=== PATIENT | female | born 1935 | race Caucasian/White ===

== ENCOUNTER 2020-06-29 20:06 | Emergency (ER) | payer MEDICARE ==
[2020-06-29] MEDS ORDERED: GABAPENTIN100 M2 PO (20:22)
[2020-06-29] MEDS ORDERED: LORAZEPAM0.5 MG PO (20:22)
[2020-06-29] MEDS ORDERED: RIVASTIGMINE1 EACH TD (20:23)
[2020-06-29] MEDS ORDERED: ZESTORETIC 20-1 EACH PO (20:23)
[2020-06-29] MEDS ORDERED: PRISTIQ50 MG PO (20:23)
[2020-06-29] MEDS ORDERED: LOVASTATIN40 MG PO (20:24)
[2020-06-29] MEDS ORDERED: PANTOPRAZOLE SO40 MG PO (20:24)
[2020-06-29] MEDS ORDERED: MIRTAZAPINE15 M2 PO (20:24)
[2020-06-29] MEDS ORDERED: Synthroid,Levo25 MCG PO (20:25)
[2020-06-29] MEDS ORDERED: ONDANSETRON HYDR4 MG PO (20:26)
[2020-06-29] MEDS ORDERED: VITAMIN D250 MC1 PO (20:26)
[2020-06-29] MEDS ORDERED: CLARITIN10 MG PO (20:27)
[2020-06-29 21:04] LABS: BASO % 0.3 % (0.0-1.0); EOS % 0.1 % (1.0-4.0); HEMATOCRIT 34.6 % (37.0-47.0); LYMPH # 0.5 10*3/uL (1.3-4.4); LYMPH % 6.6 % (27.0-41.0); MEAN CELL VOLUME 84.8 fl (81.0-99.0); MEAN CORPUSCULAR HGB 27.7 pg (27.0-31.0); MEAN CORPUSCULAR HGB CONC 32.7 g/dl (33.0-37.0); MONO # 0.7 10*3/uL (0.1-1.0); MONO % 9.3 % (3.0-9.0); NEUT # 5.8 10*3/uL (2.3-7.9); NEUT % 83.4 % (47.0-73.0); PLATELET COUNT AUTOMATED 258 10*3/uL (130-400); RED BLOOD COUNT 4.08 10*6/uL (4.10-5.10); RED CELL DISTRI WIDTH 14.6 % (0-14.5)
[2020-06-29 21:15] LABS: ACT PARTIAL THROMBO TIME 28.7 SECONDS (20.0-32.1); INTERNATIONAL NORM RATIO 0.9 (2.0-3.5)
[2020-06-29 21:16] LABS: BILIRUBIN NEGATIVE (NEGATIVE); CLARITY CLEAR (CLEAR); COLOR YELLOW (YELLOW); GLUCOSE NEGATIVE (NEGATIVE); KETONE NEGATIVE (NEGATIVE); SPECIFIC GRAVITY 1.005 (1.005-1.030)
[2020-06-29 21:17] LABS: BLOOD 1+ (NEGATIVE); LEUKO ESTERASE NEGATIVE (NEGATIVE); NITRITE NEGATIVE (NEGATIVE); UROBILINOGEN 0.2 E.U./dl (0.2-1.0)
[2020-06-29 21:22] LABS: ALBUMIN 3.7 gm/dl (3.1-4.5); ALKALINE PHOSPHATASE 92 U/L (45-117); BUN 19 mg/dl (7-24); CHLORIDE 91 mmol/L (98-107); CPK 378 U/L (26-192); CREATININE 1.52 mg/dL (0.55-1.02); POTASSIUM 4.2 mmol/L (3.5-5.1); SGOT/AST 27 IU/L (3-35); SGPT/ALT 23 U/L (12-78); SODIUM 123 mmol/L (136-145); TOTAL PROTEIN 7.7 gm/dL (6.4-8.2)
[2020-06-29 21:25] LABS: TROPONIN I < 0.015 ng/ml (<0.045)
[2020-06-29 21:27] LABS: BACTERIA 1+; RBC 0-2 rbc/hpf (0-2)
== END 2020-06-30 04:47 | disposition short-term general hospital (02) ==
LOC: ED 20:06
PROVIDERS: Emergency Medicine
DX: S72.011A Unspecified intracapsular fracture of right femur, initial encounter for closed fracture (principal); Z79.899 Other long term (current) drug therapy; X58.XXXA Exposure to other specified factors, initial encounter; Y93.89 Activity, other specified; Y92.89 Other specified places as the place of occurrence of the external cause; Y99.8 Other external cause status